=== PATIENT | male | born 1960 | race American Indian/Alaskan Native ===

== ENCOUNTER 2019-03-26 12:39 | Emergency (ER) | payer MEDICARE ==
--- NOTE | 2019-03-26 13:04 | Event Note ---
ED Screening Note ED Screening Note: Mr. Mc hax hx of PTSD, MDD has been anxious depressed. Using alcohol and cocaine. No beds at [facility]. Wants to get stable. No SI/HI This initial assessment/diagnostic orders/clinical plan/treatment(s) is/are subject to change based on patients health status, clinical progression and re-assessment by fellow clinical providers in the ED. Further treatment and workup at subsequent clinical providers discretion. Patient/guardian urged not to elope from the ED as their condition may be serious if not clinically assessed and managed. Initial orders include: labs MH consult
[2019-03-26 14:20] LABS: Basophils % (Auto) 0.4 % (0.0-1.8); Eosinophils # (Auto) 0.1 K/mm3 (0.0-0.4); Eosinophils % (Auto) 0.9 % (0.0-4.3); Hematocrit 50.7 % (35.5-45.6); Hemoglobin 17.6 gm/dl (11.8-15.2); Lymphocytes # (Auto) 3.1 K/mm3 (1.2-5.4); Lymphocytes % (Auto) 28.7 % (13.4-35.0); Mean Corpuscular HGB Conc 35 % (32-34); Mean Corpuscular Volume 104 fl (84-94); Monocytes # (Auto) 0.7 K/mm3 (0.0-0.8); Monocytes % (Auto) 6.3 % (0.0-7.3); Platelet Count 248 K/mm3 (140-440); Red Blood Count 4.86 M/mm3 (3.65-5.03); Red Cell Distribution Width 13.7 % (13.2-15.2)
[2019-03-26 14:22] LABS: Amphetamine Screen,Urine PRESUMPTIVE NEGATIVE; Benzodiazepines Screen,Urine PRESUMPTIVE NEGATIVE; Cannabinoid Screen,Urine PRESUMPTIVE NEGATIVE; Methadone Screen,Urine PRESUMPTIVE NEGATIVE; Opiate Screen,Urine PRESUMPTIVE NEGATIVE
[2019-03-26 14:36] LABS: Cocaine Screen,Urine PRESUMPTIVE POSITIVE
[2019-03-26 14:43] LABS: Alanine Aminotransferase 21 units/L (7-56); Albumin 3.6 g/dL (3.9-5); BUN/Creatinine Ratio 7; Blood Urea Nitrogen 8 mg/dL (9-20); Hemolysis Index 25
[2019-03-26 14:46] LABS: Bilirubin,Urine NEG (Negative); Blood,Urine NEG (Negative); Color,Urine Yellow (Yellow); Mucus,Urine 3+ /HPF; Protein,Urine <15 mg/dL mg/dL (Negative); Urobilinogen,Urine < 2.0 mg/dL (<2.0)
--- NOTE | 2019-03-27 07:53 | Emergency Department Report ---
ED Psych HPI - General Chief Complaint: Psych Stated Complaint: DEPRESSION Time Seen by Provider: 03/27/19 07:46 Source: patient Mode of arrival: Ambulatory Limitations: No Limitations - History of Present Illness Initial Comments: Mr. Osborne is a very pleasant 58-year-old male with history of PTSD, major depressive disorder, polysubstance abuse who presents with anxiety and depression. He has abstained for alcohol for the last 1 1/2 years. He recently started using alcohol again. 1 week ago he used cocaine. He wanted to "get stable". He feels that he is going to continue to use cocaine and alcohol if he does not get any immediate help. He denies suicidal homicidal ideation. He attempted to gain acceptance to [facility]. He was informed that there were no male beds available. He was referred to our facility for further assistance. Denies any physical complaints. MD Complaint: feels depressed -: Gradual, week(s) (Several weeks) Associated Psychiatric Symptoms: depression History of same: Yes Quality: intermittent Improves With: none Worsens With: achohol, drug use Context: recent alcohol abuse, recent drug abuse, not taking psychiatric (Has been without medication for several months) Associated Symptoms: denies other symptoms - Related Data Home Medications Medication Instructions Recorded Confirmed Last Taken Albuterol INH(or & Nicu Only) 2 puff IH QID PRN 09/21/15 10/03/15 10/02/15 23:00 [ProAir HFA Inhaler] Fluticasone/Salmeterol (Nf) 1 puff INHALATION PRN PRN 09/21/15 10/03/15 10/02/15 23:00 [Advair 250-50 Diskus (Nf)] traMADoL [Ultram 50 MG tab] 50 mg PO Q6HR PRN 09/21/15 09/21/15 Unknown Previous Rx's Medication Instructions Recorded Last Taken Type Celecoxib [celeBREX] 100 mg PO BID #60 capsule 10/05/15 Unknown Rx Allergies Allergy/AdvReac Type Severity Reaction Status Date / Time No Known Allergies Allergy Verified 09/21/15 10:20 ED Review of Systems ROS: Stated complaint: DEPRESSION Other details as noted in HPI Comment: All other systems reviewed and negative Constitutional: denies: fever, malaise Respiratory: denies: cough Cardiovascular: denies: chest pain Gastrointestinal: denies: abdominal pain, nausea, vomiting Psychiatric: anxiety, depression ED Past Medical Hx - Past Medical History Previous Medical History?: Yes Hx Hypertension: No Hx Heart Attack/AMI: No Hx Liver Disease: No Hx Renal Disease: No Hx Sickle Cell Disease: No Hx Seizures: No Hx COPD: Yes - Surgical History Past Surgical History?: No - Social History Smoking Status: Current Every Day Smoker Substance Use Type: Alcohol, Cocaine - Medications Home Medications: Home Medications Medication Instructions Recorded Confirmed Last Taken Type Albuterol INH(or & Nicu Only) 2 puff IH QID PRN 09/21/15 10/03/15 10/02/15 23:00 History [ProAir HFA Inhaler] Fluticasone/Salmeterol (Nf) 1 puff INHALATION PRN PRN 09/21/15 10/03/15 10/02/15 23:00 History [Advair 250-50 Diskus (Nf)] traMADoL [Ultram 50 MG tab] 50 mg PO Q6HR PRN 09/21/15 09/21/15 Unknown History Celecoxib [celeBREX] 100 mg PO BID #60 capsule 10/05/15 Unknown Rx ED Physical Exam - General Limitations: No Limitations General appearance: alert, in no apparent distress, other (Very pleasant dem eanor, articulate insightful friendly jovial) - Head Head exam: Present: atraumatic, normocephalic - Eye Eye exam: Present: normal appearance - ENT ENT exam: Present: mucous membranes moist - Neck Neck exam: Present: normal inspection, full ROM - Respiratory Respiratory exam: Present: normal lung sounds bilaterally. Absent: respiratory distress, wheezes, rales, rhonchi - Cardiovascular Cardiovascular Exam: Present: regular rate, normal rhythm, normal heart sounds. Absent: systolic murmur, diastolic murmur, rubs, gallop - GI/Abdominal GI/Abdominal exam: Present: soft, normal bowel sounds. Absent: distended, tenderness, guarding, rebound - Rectal Rectal exam: Present: deferred - Extremities Exam Extremities exam: Present: normal inspection - Back Exam Back exam: Present: normal inspection - Neurological Exam Neurological exam: Present: alert, oriented X3 - Psychiatric Psychiatric exam: Present: normal affect, normal mood - Skin Skin exam: Present: warm, dry, intact, normal color. Absent: rash ED Course Vital Signs 0203/26/19 03/27/19 13:03 19:50 08:18 Temperature 98.3 F 97.7 F 98.3 F Pulse Rate 108 H 86 85 Respiratory 16 18 14 Rate Blood Pressure 126/83 Blood Pressure 105/74 113/74 [Left] O2 Sat by Pulse 96 98 97 Oximetry ED Medical Decision Making - Lab Data Result diagrams: 03/26/19 14:06 03/26/19 14:06 Laboratory Results - last 24 hr 03/26/19 03/26/19 03/26/19 13:57 13:57 14:06 WBC 10.9 RBC 4.86 Hgb 17.6 H Hct 50.7 H MCV 104 H MCH 36 H MCHC 35 H RDW 13.7 Plt Count 248 Lymph % (Auto) 28.7 [place] % (Auto) 6.3 Eos % (Auto) 0.9 Baso % (Auto) 0.4 Lymph # 3.1 [place] # 0.7 Eos # 0.1 Baso # 0.0 Seg Neutrophils % 63.7 Seg Neutrophils # 6.9 Sodium Potassium Chloride Carbon Dioxide Anion Gap BUN Creatinine Estimated GFR BUN/Creatinine Ratio Glucose Calcium Total Bilirubin AST ALT Alkaline Phosphatase Total Protein Albumin Albumin/Globulin Ratio Urine Color Yellow Urine Turbidity Clear Urine pH 5.0 Ur Specific [place] 1.027 Urine Protein <15 mg/dl Urine Glucose (UA) Neg Urine Ketones Neg Urine Blood Neg Urine Nitrite Neg Urine Bilirubin Neg Urine Urobilinogen < 2.0 Ur Leukocyte Esterase Tr Urine WBC (Auto) 22.0 H Urine RBC (Auto) 7.0 U Epithel Cells (Auto) < 1.0 Urine Mucus 3+ Salicylates Urine Opiates Screen Presumptive negative Urine Methadone Screen Presumptive negative Acetaminophen Ur Barbiturates Screen Presumptive negative Ur Phencyclidine Scrn Presumptive negative Ur Amphetamines Screen Presumptive negative U Benzodiazepines Scrn Presumptive negative Urine Cocaine Screen Presumptive positive U Marijuana (THC) Screen Presumptive negative Drugs of Abuse Note Disclamer Plasma/Serum Alcohol 03/26/19 03/26/19 03/26/19 14:06 14:06 14:06 WBC RBC Hgb Hct MCV MCH MCHC RDW Plt Count Lymph % (Auto) [place] % (Auto) Eos % (Auto) Baso % (Auto) Lymph # [place] # Eos # Baso # Seg Neutrophils % Seg Neutrophils # Sodium 141 Potassium 4.0 Chloride 103.4 Carbon Dioxide 23 Anion Gap 19 BUN 8 L Creatinine 1.2 Estimated GFR > 60 BUN/Creatinine Ratio 7 Glucose 269 H Calcium 9.0 Total Bilirubin 0.40 AST 24 ALT 21 Alkaline Phosphatase 96 Total Protein 6.1 L Albumin 3.6 L Albumin/Globulin Ratio 1.4 Urine Color Urine Turbidity Urine pH Ur Specific [place] Urine Protein Urine Glucose (UA) Urine Ketones Urine Blood Urine Nitrite Urine Bilirubin Urine Urobilinogen Ur Leukocyte Esterase Urine WBC (Auto) Urine RBC (Auto) U Epithel Cells (Auto) Urine Mucus Salicylates < 0.3 L Urine Opiates Screen Urine Methadone Screen Acetaminophen Ur Barbiturates Screen Ur Phencyclidine Scrn Ur Amphetamines Screen U Benzodiazepines Scrn Urine Cocaine Screen U Marijuana (THC) Screen Drugs of Abuse Note Plasma/Serum Alcohol < 0.01 03/26/19 14:06 WBC RBC Hgb Hct MCV MCH MCHC RDW Plt Count Lymph % (Auto) [place] % (Auto) Eos % (Auto) Baso % (Auto) Lymph # [place] # Eos # Baso # Seg Neutrophils % Seg Neutrophils # Sodium Potassium Chloride Carbon Dioxide Anion Gap BUN Creatinine Estimated GFR BUN/Creatinine Ratio Glucose Calcium Total Bilirubin AST ALT Alkaline Phosphatase Total Protein Albumin Albumin/Globulin Ratio Urine Color Urine Turbidity Urine pH Ur Specific [place] Urine Protein Urine Glucose (UA) Urine Ketones Urine Blood Urine Nitrite Urine Bilirubin Urine Urobilinogen Ur Leukocyte Esterase Urine WBC (Auto) Urine RBC (Auto) U Epithel Cells (Auto) Urine Mucus Salicylates Urine Opiates Screen Urine Methadone Screen Acetaminophen < 5.0 L Ur Barbiturates Screen Ur Phencyclidine Scrn Ur Amphetamines Screen U Benzodiazepines Scrn Urine Cocaine Screen U Marijuana (THC) Screen Drugs of Abuse Note Plasma/Serum Alcohol - Medical Decision Making Mr. Byrd is a 58-year-old male with history of PTSD major depressive disorder polysubstance abuse who comes emergency department for assistance with alcohol and cocaine use. He reports depressed mood without suicidal or homicidal ideation. Mr. Mc is medically clear for psychiatric care. I have reviewed labs. CBC chemistry serum toxicology within normal limits. Urine tox came positive for cocaine. Urinalysis does not appear to be a clean catch sample. He does not have any urinary symptoms which would constitute infection. 1013 instituted to facilitate patien' patient will be transported to [facility]. Critical care attestation.: If time is entered above; I have spent that time in minutes in the direct care of this critically ill patient, excluding procedure time. ED Disposition Clinical Impression: Polysubstance abuse, Acute depression Disposition: [id number] PSY HOSP/PSY UNIT Is pt being admited?: No Does the pt Need Aspirin: No Condition: Stable Referrals: [facility] [Other] - 3-5 Days
[2019-03-27 14:11] VITALS: BP 105/78
== END 2019-03-27 14:14 ==
LOC: ED 12:39
DX: F32.89 Other specified depressive episodes (principal); F14.20 Cocaine dependence, uncomplicated; F17.200 Nicotine dependence, unspecified, uncomplicated; J44.9 Chronic obstructive pulmonary disease, unspecified; Z79.899 Other long term (current) drug therapy
CPT/HCPCS: 36415; 80053; 80307; 80320; 81001; 82962; 85025; 87086; G0480

== ENCOUNTER 2020-01-17 07:07 | Emergency (ER) | payer MEDICARE ==
[2020-01-18 04:59] LABS: Basophils % (Auto) 0.5 % (0.0-1.8); Eosinophils # (Auto) 0.2 K/mm3 (0.0-0.4); Eosinophils % (Auto) 2.1 % (0.0-4.3); Hematocrit 42.1 % (35.5-45.6); Hemoglobin 14.8 gm/dl (11.8-15.2); Lymphocytes # (Auto) 2.7 K/mm3 (1.2-5.4); Lymphocytes % (Auto) 28.9 % (13.4-35.0); Mean Corpuscular HGB Conc 35 % (32-34); Mean Corpuscular Volume 101 fl (84-94); Monocytes # (Auto) 0.9 K/mm3 (0.0-0.8); Monocytes % (Auto) 9.5 % (0.0-7.3); Platelet Count 220 K/mm3 (140-440); Red Blood Count 4.19 M/mm3 (3.65-5.03); Red Cell Distribution Width 13.9 % (13.2-15.2)
[2020-01-18 05:00] LABS: Amphetamine Screen,Urine PRESUMPTIVE NEGATIVE; Benzodiazepines Screen,Urine PRESUMPTIVE NEGATIVE; Cannabinoid Screen,Urine PRESUMPTIVE NEGATIVE; Cocaine Screen,Urine PRESUMPTIVE POSITIVE; Methadone Screen,Urine PRESUMPTIVE NEGATIVE; Opiate Screen,Urine PRESUMPTIVE NEGATIVE
[2020-01-18 05:02] LABS: BUN/Creatinine Ratio 13; Blood Urea Nitrogen 10 mg/dL (9-20); Calcium 9.7 mg/dL (8.4-10.2); Hemolysis Index 9
[2020-01-18 05:05] LABS: Bilirubin,Urine NEG (Negative); Blood,Urine NEG (Negative); Color,Urine Yellow (Yellow); Mucus,Urine FEW /HPF; Protein,Urine <15 mg/dL mg/dL (Negative)
--- NOTE | 2020-01-18 06:24 | Emergency Department Report ---
HPI - General Chief Complaint: Psych Time Seen by Provider: 01/18/20 06:06 - HPI HPI: This is a 59-year-old -Citizen Of [place] male who presents to the emergency department requesting a mental health evaluation for severe depression. The patient says that he has been diagnosed with a history of major depressive disorder and PTSD for which she is taking Celexa compliantly but says "it is not working." The patient had some recent lower back surgery and because of the surgery he is unable to care for his 10-year-old son by himself and therefore, for now, his son is living somewhere else. He says that his son is "my peace" and is part of the reason for his depression. The patient says that he has recently started using some cocaine and drinking alcohol because of his depression. He does have a history of alcohol dependence in the past and withd tyler issues. It has been about 2 days since the patient last drank alcohol and denies any withdrawal symptoms at the time. Patient denies suicidal ideations and says that he "does have something to live for", but he is otherwise "mixed up and I do not know which way to go." He denies any current hallucinations. He has a psychiatrist, Dr. Gilman, but has not been able to get in to see them. He is an occasional cigarette smoker. The patient tried to go to [facility] last night for admission but was told there was no beds and needed to come to the emergency department. He has a past medical history of COPD, not oxygen dependent, and insulin-dependent diabetes. ED Past Medical Hx - Past Medical History Previous Medical History?: Yes Hx Hypertension: No Hx Heart Attack/AMI: No Hx Diabetes: Yes Hx Liver Disease: No Hx Renal Disease: No Hx Sickle Cell Disease: No Hx Seizures: No Hx COPD: Yes - Social History Smoking Status: Current Every Day Smoker - Medications Home Medications: Home Medications Medication Instructions Recorded Confirmed Last Taken Type Albuterol Mdi (or & Nicu Only) 2 puff IH QID PRN 09/21/15 10/03/15 10/02/15 23:00 History [ProAir HFA Inhaler] Fluticasone/Salmeterol (Nf) 1 puff INHALATION PRN PRN 09/21/15 10/03/15 10/02/15 23:00 History [Advair 250-50 Diskus (Nf)] traMADoL [Ultram 50 MG tab] 50 mg PO Q6HR PRN 09/21/15 09/21/15 Unknown History Celecoxib [celeBREX] 100 mg PO BID #60 capsule 10/05/15 Unknown Rx Citalopram [celeXA] 20 mg PO QDAY #30 tablet 01/18/20 Unknown Rx risperiDONE [RisperDAL] 0.25 mg PO BID #60 tab 01/18/20 Unknown Rx ED Review of Systems ROS: Stated complaint: MENTAL HEALTH Other details as noted in HPI Comment: All other systems reviewed and negative Constitutional: denies: chills, fever Eyes: denies: eye pain, vision change ENT: denies: ear pain, throat pain Respiratory: denies: cough, shortness of breath Cardiovascular: denies: chest pain, palpitations Gastrointestinal: denies: abdominal pain, vomiting Musculoskeletal: denies: joint swelling, arthralgia Neurological: denies: headache, weakness Psychiatric: depression. denies: homicidal thoughts, suicidal thoughts Physical Exam - Physical Exam Vital Signs: Vital Signs 01/17/20 01/18/20 01/18/20 07:40 04:02 04:05 Temperature 97.8 F 98.2 F Pulse Rate 96 H 88 Respiratory 18 18 18 Rate Blood Pressure Blood Pressure 114/75 124/70 [Right] O2 Sat by Pulse 100 98 98 Oximetry 01/18/20 04:21 Temperature 98.2 F Pulse Rate 88 Respiratory 18 Rate Blood Pressure 124/70 Blood Pressure [Right] O2 Sat by Pulse 98 Oximetry Physical Exam: GENERAL: The patient is well-developed well-nourished. HENT: Normocephalic. Atraumatic. Patient has moist mucous membranes. EYES: Extraocular motions are intact. NECK: Supple. Trachea is midline. CHEST/LUNGS: Clear to auscultation. There is no respiratory distress noted. HEART/CARDIOVASCULAR: Regular. There is no tachycardia. ABDOMEN: Abdomen is soft, nontender. Patient has normal bowel sounds. SKIN: Skin is warm and dry. NEURO: The patient is awake, alert, and oriented. The patient is cooperative. The patient has no focal neurologic deficits. Normal speech. MUSCULOSKELETAL: There is no tenderness or deformity. There is no limitation range of motion. ED Course Vital Signs 01/17/20 01/18/20 01/18/20 07:40 04:02 04:05 Temperature 97.8 F 98.2 F Pulse Rate 96 H 88 Respiratory 18 18 18 Rate Blood Pressure Blood Pressure 114/75 124/70 [Right] O2 Sat by Pulse 100 98 98 Oximetry 01/18/20 04:21 Temperature 98.2 F Pulse Rate 88 Respiratory 18 Rate Blood Pressure 124/70 Blood Pressure [Right] O2 Sat by Pulse 98 Oximetry - Reevaluation(s) Reevaluation #1: 01/18/20 14:41 Lab Results 01/18/20 01/18/20 01/18/20 Range/Units 03:55 04:23 04:23 WBC (4.5-11.0) K/mm3 RBC (3.65-5.03) M/mm3 Hgb (11.8-15.2) gm/dl Hct (35.5-45.6) % MCV (84-94) fl MCH (28-32) pg MCHC (32-34) % RDW (13.2-15.2) % Plt Count (140-440) K/mm3 Lymph % (Auto) (13.4-35.0) % [place] % (Auto) (0.0-7.3) % Eos % (Auto) (0.0-4.3) % Baso % (Auto) (0.0-1.8) % Lymph # (Auto) (1.2-5.4) K/mm3 [place] # (Auto) (0.0-0.8) K/mm3 Eos # (Auto) (0.0-0.4) K/mm3 Baso # (Auto) (0.0-0.1) K/mm3 Seg Neutrophils % (40.0-70.0) % Seg Neutrophils # (1.8-7.7) K/mm3 Sodium (137-145) mmol/L Potassium (3.6-5.0) mmol/L Chloride (98-107) mmol/L Carbon Dioxide (22-30) mmol/L Anion Gap mmol/L BUN (9-20) mg/dL Creatinine (0.8-1.3) mg/dL Estimated GFR ml/min BUN/Creatinine Ratio % Glucose (75-100) mg/dL POC Glucose (70-105) mg/dL Calcium (8.4-10.2) mg/dL Urine Color (Yellow) Urine Turbidity (Clear) Urine pH (5.0-7.0) Ur Specific [place] (1.003-1.030) Urine Protein (Negative) mg/dL Urine Glucose (UA) (Negative) mg/dL Urine Ketones (Negative) mg/dL Urine Blood (Negative) Urine Nitrite (Negative) Urine Bilirubin (Negative) Urine Urobilinogen (<2.0) mg/dL Ur Leukocyte Esterase (Negative) Urine WBC (Auto) (0.0-6.0) /HPF Urine RBC (Auto) (0.0-6.0) /HPF U Epithel Cells (Auto) (0-13.0) /HPF Urine Mucus /HPF Salicylates < 0.3 L (2.8-20.0) mg/dL Urine Opiates Screen Presumptive negative Urine Methadone Screen Presumptive negative Acetaminophen 5.0 L (10.0-30.0) ug/mL Ur Barbiturates Screen Presumptive negative Ur Phencyclidine Scrn Presumptive negative Ur Amphetamines Screen Presumptive negative U Benzodiazepines Scrn Presumptive negative Urine Cocaine Screen Presumptive positive U Marijuana (THC) Screen Presumptive negative Drugs of Abuse Note Disclamer Plasma/Serum Alcohol (0-0.07) % 01/18/20 01/18/20 01/18/20 Range/Units 04:23 04:23 04:23 WBC 9.2 (4.5-11.0) K/mm3 RBC 4.19 (3.65-5.03) M/mm3 Hgb 14.8 (11.8-15.2) gm/dl Hct 42.1 (35.5-45.6) % MCV 101 H (84-94) fl MCH 35 H (28-32) pg MCHC 35 H (32-34) % RDW 13.9 (13.2-15.2) % Plt Count 220 (140-440) K/mm3 Lymph % (Auto) 28.9 (13.4-35.0) % [place] % (Auto) 9.5 H (0.0-7.3) % Eos % (Auto) 2.1 (0.0-4.3) % Baso % (Auto) 0.5 (0.0-1.8) % Lymph # (Auto) 2.7 (1.2-5.4) K/mm3 [place] # (Auto) 0.9 H (0.0-0.8) K/mm3 Eos # (Auto) 0.2 (0.0-0.4) K/mm3 Baso # (Auto) 0.0 (0.0-0.1) K/mm3 Seg Neutrophils % 59.0 (40.0-70.0) % Seg Neutrophils # 5.4 (1.8-7.7) K/mm3 Sodium 135 L (137-145) mmol/L Potassium 4.6 (3.6-5.0) mmol/L Chloride 100.9 (98-107) mmol/L Carbon Dioxide 23 (22-30) mmol/L Anion Gap 16 mmol/L BUN 10 (9-20) mg/dL Creatinine 0.8 (0.8-1.3) mg/dL Estimated GFR > 60 ml/min BUN/Creatinine Ratio 13 % Glucose 272 H (75-100) mg/dL POC Glucose (70-105) mg/dL Calcium 9.7 (8.4-10.2) mg/dL Urine Color (Yellow) Urine Turbidity (Clear) Urine pH (5.0-7.0) Ur Specific [place] (1.003-1.030) Urine Protein (Negative) mg/dL Urine Glucose (UA) (Negative) mg/dL Urine Ketones (Negative) mg/dL Urine Blood (Negative) Urine Nitrite (Negative) Urine Bilirubin (Negative) Urine Urobilinogen (<2.0) mg/dL Ur Leukocyte Esterase (Negative) Urine WBC (Auto) (0.0-6.0) /HPF Urine RBC (Auto) (0.0-6.0) /HPF U Epithel Cells (Auto) (0-13.0) /HPF Urine Mucus /HPF Salicylates (2.8-20.0) mg/dL Urine Opiates Screen Urine Methadone Screen Acetaminophen (10.0-30.0) ug/mL Ur Barbiturates Screen Ur Phencyclidine Scrn Ur Amphetamines Screen U Benzodiazepines Scrn Urine Cocaine Screen U Marijuana (THC) Screen Drugs of Abuse Note Plasma/Serum Alcohol < 0.01 (0-0.07) % 01/18/20 01/18/20 01/18/20 Range/Units 06:28 07:48 12:04 WBC (4.5-11.0) K/mm3 RBC (3.65-5.03) M/mm3 Hgb (11.8-15.2) gm/dl Hct (35.5-45.6) % MCV (84-94) fl MCH (28-32) pg MCHC (32-34) % RDW (13.2-15.2) % Plt Count (140-440) K/mm3 Lymph % (Auto) (13.4-35.0) % [place] % (Auto) (0.0-7.3) % Eos % (Auto) (0.0-4.3) % Baso % (Auto) (0.0-1.8) % Lymph # (Auto) (1.2-5.4) K/mm3 [place] # (Auto) (0.0-0.8) K/mm3 Eos # (Auto) (0.0-0.4) K/mm3 Baso # (Auto) (0.0-0.1) K/mm3 Seg Neutrophils % (40.0-70.0) % Seg Neutrophils # (1.8-7.7) K/mm3 Sodium (137-145) mmol/L Potassium (3.6-5.0) mmol/L Chloride (98-107) mmol/L Carbon Dioxide (22-30) mmol/L Anion Gap mmol/L BUN (9-20) mg/dL Creatinine (0.8-1.3) mg/dL Estimated GFR ml/min BUN/Creatinine Ratio % Glucose (75-100) mg/dL POC Glucose 283 H 308 H 269 H (70-105) mg/dL Calcium (8.4-10.2) mg/dL Urine Color (Yellow) Urine Turbidity (Clear) Urine pH (5.0-7.0) Ur Specific [place] (1.003-1.030) Urine Protein (Negative) mg/dL Urine Glucose (UA) (Negative) mg/dL Urine Ketones (Negative) mg/dL Urine Blood (Negative) Urine Nitrite (Negative) Urine Bilirubin (Negative) Urine Urobilinogen (<2.0) mg/dL Ur Leukocyte Esterase (Negative) Urine WBC (Auto) (0.0-6.0) /HPF Urine RBC (Auto) (0.0-6.0) /HPF U Epithel Cells (Auto) (0-13.0) /HPF Urine Mucus /HPF Salicylates (2.8-20.0) mg/dL Urine Opiates Screen Urine Methadone Screen Acetaminophen (10.0-30.0) ug/mL Ur Barbiturates Screen Ur Phencyclidine Scrn Ur Amphetamines Screen U Benzodiazepines Scrn Urine Cocaine Screen U Marijuana (THC) Screen Drugs of Abuse Note Plasma/Serum Alcohol (0-0.07) % 01/18/20 Range/Units Unknown WBC (4.5-11.0) K/mm3 RBC (3.65-5.03) M/mm3 Hgb (11.8-15.2) gm/dl Hct (35.5-45.6) % MCV (84-94) fl MCH (28-32) pg MCHC (32-34) % RDW (13.2-15.2) % Plt Count (140-440) K/mm3 Lymph % (Auto) (13.4-35.0) % [place] % (Auto) (0.0-7.3) % Eos % (Auto) (0.0-4.3) % Baso % (Auto) (0.0-1.8) % Lymph # (Auto) (1.2-5.4) K/mm3 [place] # (Auto) (0.0-0.8) K/mm3 Eos # (Auto) (0.0-0.4) K/mm3 Baso # (Auto) (0.0-0.1) K/mm3 Seg Neutrophils % (40.0-70.0) % Seg Neutrophils # (1.8-7.7) K/mm3 Sodium (137-145) mmol/L Potassium (3.6-5.0) mmol/L Chloride (98-107) mmol/L Carbon Dioxide (22-30) mmol/L Anion Gap mmol/L BUN (9-20) mg/dL Creatinine (0.8-1.3) mg/dL Estimated GFR ml/min BUN/Creatinine Ratio % Glucose (75-100) mg/dL POC Glucose (70-105) mg/dL Calcium (8.4-10.2) mg/dL Urine Color Yellow (Yellow) Urine Turbidity Clear (Clear) Urine pH 5.0 (5.0-7.0) Ur Specific [place] 1.030 (1.003-1.030) Urine Protein <15 mg/dl (Negative) mg/dL Urine Glucose (UA) >=500 (Negative) mg/dL Urine Ketones Neg (Negative) mg/dL Urine Blood Neg (Negative) Urine Nitrite Neg (Negative) Urine Bilirubin Neg (Negative) Urine Urobilinogen 2.0 (<2.0) mg/dL Ur Leukocyte Esterase Neg (Negative) Urine WBC (Auto) 15.0 H (0.0-6.0) /HPF Urine RBC (Auto) 3.0 (0.0-6.0) /HPF U Epithel Cells (Auto) < 1.0 (0-13.0) /HPF Urine Mucus Few /HPF Salicylates (2.8-20.0) mg/dL Urine Opiates Screen Urine Methadone Screen Acetaminophen (10.0-30.0) ug/mL Ur Barbiturates Screen Ur Phencyclidine Scrn Ur Amphetamines Screen U Benzodiazepines Scrn Urine Cocaine Screen U Marijuana (THC) Screen Drugs of Abuse Note Plasma/Serum Alcohol (0-0.07) % ED Medical Decision Making - Lab Data Result diagrams: 01/18/20 04:23 01/18/20 04:23 - Medical Decision Making This patient presents to the emergency department for a mental health evaluation secondary to depression. The patient denied any suicidal or homicidal ideations to me. He denies any hallucinations and does not express any signs of acute psychosis. Patient's labs have been mostly unremarkable except for some hyperglycemia. Patient does not appear to be in diabetic ketoacidosis as there is no elevation in the anion gap. He was given a dose of subcutaneous regular insulin. Vital signs have been reassuring throughout his ED course. Patient was seen by the psychiatric team who agrees that he does not appear to require inpatient stabilization or a 1013 at this time. They have added Risperdal to his Celexa and have given the patient multiple outpatient referrals for psychiatric treatment. The patient has been instructed to follow-up outpatient for his depression and to return to the closest emergency department with any worsening of his symptoms, thoughts of harming himself or others, or with any acute distress. Critical Care Time: No Critical care attestation.: If time is entered above; I have spent that time in minutes in the direct care of this critically ill patient, excluding procedure time. ED Disposition Clinical Impression: Hyperglycemia Depression Qualifiers: Depression Type: unspecified Qualified Code(s): F32.9 - Major depressive disorder, single episode, unspecified Disposition: DC-01 TO HOME OR SELFCARE Is pt being admited?: No Condition: Stable Instructions: Suicidal Feelings: How to Help Yourself, Hyperglycemia, Major Depressive Disorder, Adult Additional Instructions: Professional and Agency Contacts To help [facility](01/09) [place] Crisis Line: Suicide Prevention Line: Crisis Text Line: Text START to 273065 Emergency: 911 Outpatient COMMUNITY Behavioral Health Resources: [facility]: [facility] [address] [place], [place] [address] [place]: [facility] - [address] [place] [address] Thursday thru Thursday - 8am - 5pm [facility]AN[facility]: [facility] Address: [address] [place], [place] [address]Thursday thru Thursday- 7am-2pm [facility] Address: [address] [place] [address] Thursday thru Thursday: 8:30AM-5PM In case of an emergency, please contact the following numbers: [place] Crisis and Access Line: Number: Crisis Text Line: (Text START) Number: 149092 Suicide Prevention Line: Number: w Emergency Number: 911 SUBSTANCE ABUSE PROGRAMS: [facility]: Location: [place], [place] [facility] Address: [address] [place] [address] [facility]: Address: [address] [place] [address] [facility]: Address: [address] [place] [address] [facility]: Address: [address] [place] [address] [facility] Address: [address] [place] [address]. Please contact above numbers to attempt placement into free based program. Medicaid Programs: [facility]: Address: [address] [place] [id number] [facility]: Address: [address] [place] [address] Prescriptions: Citalopram [celeXA] 20 mg PO QDAY #30 tablet risperiDONE [RisperDAL] 0.25 mg PO BID #60 tab Referrals: PRIMARY CARE, [Primary Care Provider] - 3-5 Days
[2020-01-18] MEDS ORDERED: INSULIN REGULAR, HUMAN 100 UNIT/ML 3ML VIAL SUB-Q SCH (06:30)
[2020-01-18 08:05] VITALS: BP 120/80
[2020-01-18] MEDS ORDERED: INSULIN LISPRO 100 UNIT/ML VIAL 3 mL SUB-Q ONE (08:29)
[2020-01-18] MEDS ORDERED: INSULIN REGULAR, HUMAN 100 UNITS/1 ML ONE (08:30)
[2020-01-18] MEDS ORDERED: INSULIN REGULAR, HUMAN 100 UNIT/ML 3ML VIAL SUB-Q ONE (08:33)
--- NOTE | 2020-01-18 11:19 | Consultation ---
History of Present Illness - Reason for Consult Consult date: 01/18/20 Reason for consult: depression - History of Present Psychiatric Illness Sahil Mc is a 59y/o male patient who presented to the ER for depression. During my interview with the patient he states he "got into a depressed mood because of pain and relapsing on drugs." The patient says he takes "alcohol, pills, and crack." He says "I've been doing good but I let little stuff happen to me that cause me to relapse." He says he's "been off his meds for a month." The patient says at the time he was having "paranoia that was drug induced." He describes his mood as "calm and better now." The patient denies SI/HI or hallucinations of any kind. PAST PSYCHIATRIC HISTORY Diagnoses: Bipolar Suicide attempts or Self-harm behavior: Denies Prior psychiatric hospitalizations: Denies Substance Abuse history: crack, alcohol, pills Previous psychiatric medications tried: risperdal, bendryl, celexa Outpatient treatment: not currently PAST MEDICAL HISTORY: None reported Family Psychiatric History: None reported or documented SOCIAL HISTORY Marital Status: Single Living Arrangements: alone Employment Status: unemployed Access to guns/weapons: Denies Education: High school grad History of Abuse: Denies Legal History: Denies REVIEW OF SYSTEMS Constitutional: Negative for weight loss ENT: Negative for stridor Respiratory: Negative for cough or hemoptysis All other systems reviewed and are negative MENTAL STATUS EXAMINATION General Appearance and Behavior: Age appropriate, good hygiene, not wearing appropriate clothes, good eye contact, cooperative polite with questioning. Cooperation: Participating/engaged Psychomotor Behavior: Psychomotor normal Mood: "calm and better" Affect and affective range: congruent with stated mood Thought Process: goal directed Thought Content: None Speech: Normal tone and pace Suicidal Ideation: Denies Homicidal Ideation: Denies Hallucinations: Denies Delusions: None elicited Impulse Control: Limited Insight and Judgment: Limited insight and judgment Memory: Normal Attention: limited Orientation: Alert, oriented Assessment and Plan Cocaine Use Disorder Substance Induced Mood Disorder Noncompliance with Other Treatment and Medical Regimen Bipolar by history TREATMENT Celexa 20mg po daily Risperidone 0.25mg po BID Sitter: defer to primary Medical: Per primary Disposition: Do not Recommend acute inpatient treatment at this time. The patient understands that if suicidal thoughts or homicidal thoughts or tendencies are to arise he is to seek immediate assistance including but not limited to the crisis hotline, 911/ER. The esthetician/owner is to give the patient outpatient resources, cog-behavior therapy, and safety plan, drug rehab. The patient to follow up with outpatient psych in 7 to 14 days upon discharge Abstain from all illicit drug use. Will sign off. Thank you for this consult. Case discussed with Dr Mauricio Medications and Allergies Allergies Allergy/AdvReac Type Severity Reaction Status Date / Time No Known Allergies Allergy Verified 09/21/15 10:20 Home Medications Medication Instructions Recorded Confirmed Last Taken Type Albuterol Mdi (or & Nicu Only) 2 puff IH QID PRN 09/21/15 10/03/15 10/02/15 23:00 History [ProAir HFA Inhaler] Fluticasone/Salmeterol (Nf) 1 puff INHALATION PRN PRN 09/21/15 10/03/15 10/02/15 23:00 History [Advair 250-50 Diskus (Nf)] traMADoL [Ultram 50 MG tab] 50 mg PO Q6HR PRN 09/21/15 09/21/15 Unknown History Celecoxib [celeBREX] 100 mg PO BID #60 capsule 10/05/15 Unknown Rx Citalopram [celeXA] 20 mg PO QDAY #30 tablet 01/18/20 Unknown Rx risperiDONE [RisperDAL] 0.25 mg PO BID #60 tab 01/18/20 Unknown Rx Mental Status Exam - Vital signs Last Vital Signs Temp 97.6 F 01/18/20 08:04 Pulse 90 01/18/20 08:04 Resp 18 01/18/20 08:04 BP 120/80 01/18/20 08:04 Pulse Ox 96 01/18/20 08:04 Results Result Diagrams: 01/18/20 04:23 01/18/20 04:23 Abnormal lab results 01/18/20 01/18/20 01/18/20 Range/Units 04:23 04:23 04:23 MCV (84-94) fl MCH (28-32) pg MCHC (32-34) % [place] % (Auto) (0.0-7.3) % [place] # (Auto) (0.0-0.8) K/mm3 Sodium 135 L (137-145) mmol/L Glucose 272 H (75-100) mg/dL POC Glucose (70-105) mg/dL Urine WBC (Auto) (0.0-6.0) /HPF Salicylates < 0.3 L (2.8-20.0) mg/dL Acetaminophen 5.0 L (10.0-30.0) ug/mL 01/18/20 01/18/20 01/18/20 Range/Units 04:23 06:28 07:48 MCV 101 H (84-94) fl MCH 35 H (28-32) pg MCHC 35 H (32-34) % [place] % (Auto) 9.5 H (0.0-7.3) % [place] # (Auto) 0.9 H (0.0-0.8) K/mm3 Sodium (137-145) mmol/L Glucose (75-100) mg/dL POC Glucose 283 H 308 H (70-105) mg/dL Urine WBC (Auto) (0.0-6.0) /HPF Salicylates (2.8-20.0) mg/dL Acetaminophen (10.0-30.0) ug/mL 01/18/20 Range/Units Unknown MCV (84-94) fl MCH (28-32) pg MCHC (32-34) % [place] % (Auto) (0.0-7.3) % [place] # (Auto) (0.0-0.8) K/mm3 Sodium (137-145) mmol/L Glucose (75-100) mg/dL POC Glucose (70-105) mg/dL Urine WBC (Auto) 15.0 H (0.0-6.0) /HPF Salicylates (2.8-20.0) mg/dL Acetaminophen (10.0-30.0) ug/mL All other labs normal.
== END 2020-01-18 12:32 | disposition home or self-care (01) ==
LOC: ED 07:07
DX: E11.65 Type 2 diabetes mellitus with hyperglycemia (principal); F32.89 Other specified depressive episodes; J44.9 Chronic obstructive pulmonary disease, unspecified; F17.200 Nicotine dependence, unspecified, uncomplicated
CPT/HCPCS: 36415; 80048; 80307; 80320; 81001; 82962; 85025; 87086; 96372; G0480; J1815

== ENCOUNTER 2020-01-21 15:40 | Emergency (ER) | payer MEDICARE ==
--- NOTE | 2020-01-21 16:52 | Emergency Department Report ---
ED Extremity Problem HPI - General Chief complaint: Extremity Problem,Nontraumatic Stated complaint: L LEG PAIN Time Seen by Provider: 01/21/20 16:24 Source: patient, EMS Mode of arrival: Ambulatory Limitations: Physical Limitation, Other - History of Present Illness Initial comments: 59-year-old male, history of PTSD, depression, diabetes, COPD, presents to ED with left leg swelling x4 days. Patient is currently inpatient at [facility] for depression and states they wanted him to come to ED to have his leg evaluated. Patient states he had back surgery (spinal fusion) at [facility] on December 11. Patient states this is his third back surgery. He reports significant improvement in his chronic back pain. Patient reports only slight pain in the leg. He denies any pain or swelling in the right leg. Patient states no improvement with elevation of the leg. He denies any weakness, numbness or tingling in his legs. He denies any fever, chest pain, shortness of breath. Patient reports alcohol use. He states he has only used cocaine once since his surgery and that was 4 days ago. MD Complaint: extremity swelling -: days(s) (4) Location: left, lower extremity History of Same: No Quality: aching Consistency: constant Improves with: nothing Worsens with: nothing Associated Symptoms: denies: chest pain, shortness of breath, fever - Related Data Home Medications Medication Instructions Recorded Confirmed Last Taken Albuterol Mdi (or & Nicu Only) 2 puff IH QID PRN 09/21/15 10/03/15 10/02/15 23:00 [ProAir HFA Inhaler] Fluticasone/Salmeterol (Nf) 1 puff INHALATION PRN PRN 09/21/15 10/03/15 10/02/15 23:00 [Advair 250-50 Diskus (Nf)] traMADoL [Ultram 50 MG tab] 50 mg PO Q6HR PRN 09/21/15 09/21/15 Unknown Previous Rx's Medication Instructions Recorded Last Taken Type Celecoxib [celeBREX] 100 mg PO BID #60 capsule 10/05/15 Unknown Rx Citalopram [celeXA] 20 mg PO QDAY #30 tablet 01/18/20 Unknown Rx risperiDONE [RisperDAL] 0.25 mg PO BID #60 tab 01/18/20 Unknown Rx Apixaban [Eliquis] 5 mg PO BID #90 tablet 01/21/20 Unknown Rx Allergies Allergy/AdvReac Type Severity Reaction Status Date / Time No Known Allergies Allergy Verified 09/21/15 10:20 ED Review of Systems ROS: Stated complaint: L LEG PAIN Other details as noted in HPI Comment: All other systems reviewed and negative Constitutional: denies: chills, fever Respiratory: denies: shortness of breath Cardiovascular: denies: chest pain Musculoskeletal: as per HPI ED Past Medical Hx - Past Medical History Previous Medical History?: Yes Hx Hypertension: No Hx Heart Attack/AMI: No Hx Diabetes: Yes Hx Liver Disease: No Hx Renal Disease: No Hx Sickle Cell Disease: No Hx Seizures: No Hx COPD: Yes - Surgical History Additional Surgical History: total knee replacment of the right 2015, back surgery 2001 and 2005, spinal/back surgery 12/12/2019, - Social History Smoking Status: Heavy Tobacco Smoker Substance Use Type: Alcohol - Medications Home Medications: Home Medications Medication Instructions Recorded Confirmed Last Taken Type Albuterol Mdi (or & Nicu Only) 2 puff IH QID PRN 09/21/15 10/03/15 10/02/15 23:00 History [ProAir HFA Inhaler] Fluticasone/Salmeterol (Nf) 1 puff INHALATION PRN PRN 09/21/15 10/03/15 10/02/15 23:00 History [Advair 250-50 Diskus (Nf)] traMADoL [Ultram 50 MG tab] 50 mg PO Q6HR PRN 09/21/15 09/21/15 Unknown History Celecoxib [celeBREX] 100 mg PO BID #60 capsule 10/05/15 Unknown Rx Citalopram [celeXA] 20 mg PO QDAY #30 tablet 01/18/20 Unknown Rx risperiDONE [RisperDAL] 0.25 mg PO BID #60 tab 01/18/20 Unknown Rx Apixaban [Eliquis] 5 mg PO BID #90 tablet 01/21/20 Unknown Rx ED Physical Exam - General Limitations: Physical Limitation, Other General appearance: alert, in no apparent distress - Head Head exam: Present: atraumatic, normocephalic - Eye Eye exam: Present: normal appearance, EOMI - ENT ENT exam: Present: mucous membranes moist - Neck Neck exam: Present: normal inspection - Respiratory Respiratory exam: Present: normal lung sounds bilaterally. Absent: respiratory distress - Cardiovascular Cardiovascular Exam: Present: regular rate, normal rhythm - GI/Abdominal GI/Abdominal exam: Present: soft. Absent: distended, tenderness - Extremities Exam Extremities exam: Present: normal inspection, calf tenderness (mild), other (2+ nonpitting edema to left lower leg) - Neurological Exam Neurological exam: Present: alert, oriented X3. Absent: motor sensory deficit - Psychiatric Psychiatric exam: Present: normal affect, normal mood - Skin Skin exam: Present: warm, dry, intact, normal color ED Course Vital Signs 01/21/20 01/21/20 01/21/20 16:22 16:25 16:30 Temperature 98.1 F Pulse Rate 77 77 Respiratory 20 22 Rate Blood Pressure 119/82 119/82 O2 Sat by Pulse 94 95 96 Oximetry 01/21/20 01/21/20 01/21/20 16:46 17:00 17:16 Temperature Pulse Rate 79 74 75 Respiratory 12 18 18 Rate Blood Pressure 119/82 113/81 113/81 O2 Sat by Pulse 96 96 Oximetry 01/21/20 01/21/20 01/21/20 17:30 17:46 18:00 Temperature Pulse Rate 75 73 74 Respiratory 17 19 18 Rate Blood Pressure 120/87 120/87 122/80 O2 Sat by Pulse 95 Oximetry 01/21/20 01/21/20 01/21/20 18:16 18:30 18:46 Temperature Pulse Rate 79 74 70 Respiratory 15 18 19 Rate Blood Pressure 122/80 124/87 122/80 O2 Sat by Pulse 96 97 97 Oximetry 01/21/20 20:00 Temperature Pulse Rate Respiratory Rate Blood Pressure 117/82 O2 Sat by Pulse 97 Oximetry ED Medical Decision Making - Lab Data Result diagrams: 01/21/20 17:07 01/21/20 17:07 - Radiology Data Radiology results: report reviewed, image reviewed - Medical Decision Making Patient presents to ED with left leg swelling 1 month after back surgery. Venous Doppler ultrasound shows possible DVT in the left common femoral vein, greater saphenous vein, and superficial femoral vein. Patient denies any chest pain or shortness of breath. He is in no respiratory distress. O2 sats are normal. Patient given Eliquis here in the ED. Patient reports he has an appointment with his PCP, Dr. Kurtis Barba later this month. States he believes it is on January 30. Patient will be discharged at this time with prescription for Eliquis. Return precautions given. - Differential Diagnosis DVT, cellulitis Critical care attestation.: If time is entered above; I have spent that time in minutes in the direct care of this critically ill patient, excluding procedure time. ED Disposition Clinical Impression: DVT of lower limb, acute Disposition: TO HOME OR SELFCARE Is pt being admited?: No Condition: Stable Instructions: Deep Vein Thrombosis Prescriptions: Apixaban [Eliquis] 5 mg PO BID #90 tablet Referrals: [facility] [Provider Group] - 3-5 Days [facility] [Outside] - 3-5 Days PRIMARY CAREMD [Primary Care Provider] - 3-5 Days SCOT BARRETT MD [Staff Physician] - 3-5 Days Time of Disposition: 20:01
[2020-01-21 17:26] LABS: Basophils % (Auto) 0.5 % (0.0-1.8); Eosinophils # (Auto) 0.1 K/mm3 (0.0-0.4); Eosinophils % (Auto) 1.6 % (0.0-4.3); Hemoglobin 13.7 gm/dl (11.8-15.2); Lymphocytes # (Auto) 2.4 K/mm3 (1.2-5.4); Lymphocytes % (Auto) 32.3 % (13.4-35.0); Mean Corpuscular HGB Conc 34 % (32-34); Mean Corpuscular Volume 100 fl (84-94); Monocytes # (Auto) 0.8 K/mm3 (0.0-0.8); Monocytes % (Auto) 10.3 % (0.0-7.3); Platelet Count 223 K/mm3 (140-440); Red Blood Count 4.01 M/mm3 (3.65-5.03); Red Cell Distribution Width 13.7 % (13.2-15.2)
[2020-01-21 17:34] LABS: INR 0.92 (0.87-1.13)
[2020-01-21 17:35] LABS: Partial Thromboplastin Time 30.3 Sec. (24.2-36.6)
[2020-01-21 17:45] LABS: BUN/Creatinine Ratio 11; Blood Urea Nitrogen 10 mg/dL (9-20); Calcium 9.1 mg/dL (8.4-10.2); Hemolysis Index 7
--- NOTE | 2020-01-21 19:26 | Vascular Lab Report ---
DUPLEX DOPPLER LOWER EXTREMITY VEINS, LEFT INDICATION / CLINICAL INFORMATION: swelling. TECHNIQUE: Duplex doppler imaging was performed through the veins of the left lower extremity using venous compr ession and other maneuvers. COMPARISON: None available. FINDINGS: LEFT COMMON FEMORAL VEIN: Difficulty with compression including the greater saphenous vein. Vessel do es not fill with flow on Doppler imaging. LEFT FEMORAL VEIN: Difficulty with compression. Vessel does not fill with flow on Doppler imaging. LEFT POPLITEAL VEIN: Negative. LEFT CALF VEINS: Negative. ADDITIONAL FINDINGS: None. IMPRESSION: 1. Possible DVT involving the left common femoral vein, greater saphenous vein, and superficial femor al vein. CRITICAL RESULT: Time of Discovery (GED TEACHER/CDT): 1814 Time of Communication (GED TEACHER/CDT): 1819 Licensed Practitioner Receiving Report: Dr. Lambert Read-Back Performed: Yes. Signer Name: Javier Brito MD Signed: 01/21/2020 7:21 PM Workstation Name: [id number]
[2020-01-21] MEDS ORDERED: APIXABAN 5 MG TAB PO ONE (19:43)
[2020-01-21 20:32] VITALS: BP 117/82
== END 2020-01-21 20:30 | disposition home or self-care (01) ==
LOC: ED 15:40
DX: I82.492 Acute embolism and thrombosis of other specified deep vein of left lower extremity (principal); E11.9 Type 2 diabetes mellitus without complications; J44.9 Chronic obstructive pulmonary disease, unspecified; Z79.899 Other long term (current) drug therapy
CPT/HCPCS: 36415; 80048; 83880; 85025; 85379; 85610; 85730